=== PATIENT | female | born 1965 | race Caucasian/White ===

== ENCOUNTER 2025-09-18 23:57 | Inpatient (IN) | payer MEDICAID, OTHER ==
[~2025-09-18] VITALS: Ht 175.3 cm; Wt 71.0 kg
[~2025-09-18 23:57] MED LIST: ATOR80TA59 PO; BUSP5TA PO; CARV12.5 PO; DIPHCR TOP; LOSA25TA13 PO; METF-839 PO; NIFE1TAB52 PO; OLAN2.5T53 PO
[2025-09-19] MEDS ORDERED: diphenhydrAMINE 50 MG/ML VIAL As Ordered ONE (00:44)
[2025-09-19] MEDS ORDERED: HALOPERIDOL LACTATE 5 MG/ML VIAL As Ordered ONE (00:44)
[2025-09-19] MEDS: HALOPERIDOL LACTATE 5 MG/ML VIAL IM ONE (00:53)
[2025-09-19] MEDS: diphenhydrAMINE 50 MG/ML VIAL IM ONE (00:53)
[2025-09-19] MEDS: diphenhydrAMINE 50 MG/ML VIAL IV STA (01:40)
[2025-09-19 01:50] LABS: BASO # 0.1 10^3/uL (0.0-0.2); BASO % 0.9 % (0.0-1.0); EOS # 0.0 10^3/uL (0.0-0.5); EOS % 0.4 % (0.0-3.0); LYMPH # 1.1 10^3/uL (1.5-5.0); LYMPH % 18.7 % (24.0-44.0); MONO # 0.2 10^3/uL (0.0-0.8); MONO % 3.2 % (2.0-8.0); NEUTROPHILS # 4.4 10^3/uL (1.5-8.5); NEUTROPHILS % 76.4 % (36.0-66.0); PLATELET COUNT, AUTOMATED 257 10^3/uL (150-450)
[2025-09-19 02:09] LABS: ALT/SGPT 23 U/L (7.0-40); AST/SGOT 20 U/L (<34); CALCIUM LEVEL 10.2 MG/DL (8.5-10.1); CARBON DIOXIDE LEVEL 23 MMOL/L (20-31); CHLORIDE LEVEL 100 MMOL/L (98-107); CREATININE FOR GFR 0.68 MG/DL (0.55-1.30); GLOMERULAR FILTRATION RATE > 90.0 (>51); POTASSIUM SERUM 4.4 MMOL/L (3.5-5.1); SODIUM LEVEL 138 MMOL/L (136-145)
[2025-09-19] MEDS ORDERED: ACETAMINOPHEN 325 MG TAB PO PRN (10:45)
[2025-09-19] MEDS ORDERED: DEXTROSE 50% 50 ML SYRINGE IV PRN (10:45)
[2025-09-19] MEDS ORDERED: GLUCOSE 4 GM CHEW PO PRN (10:45)
[2025-09-19] MEDS ORDERED: GLUCAGON INJ 1 MG VIAL SC PRN (10:45)
[2025-09-19] MEDS ORDERED: DULO1CAP6 PO (10:53)
[2025-09-19] MEDS ORDERED: TRAM50TA2 PO (10:53)
[2025-09-19] MEDS ORDERED: NIFE1TAB51 PO (10:53)
[2025-09-19] MEDS ORDERED: SENN-186 PO (10:53)
[2025-09-19] MEDS ORDERED: GABA-1171 PO (10:53)
[2025-09-19 11:17] LABS: ETHYL ALCOHOL (ETHANOL) 0.004 % (0.000-0.010)
[2025-09-19] MEDS: INSULIN LISPRO (NovoLOG) PER UNIT SC SCH ×2 (12:57→21:00)
[2025-09-19] MEDS ORDERED: ACET-683 PO (12:59)
[2025-09-19] MEDS ORDERED: ASPI81TA26 PO (12:59)
[2025-09-19] MEDS ORDERED: HOME MED LIST COMPLETE! XX SCH (13:00)
[2025-09-19 14:56] LABS: INR 1.07
[2025-09-19] MEDS: busPIRone 5 MG TAB PO SCH (15:15)
[2025-09-19] MEDS: LOSARTAN 25 MG TAB PO SCH (15:16)
[2025-09-19] MEDS: ASPIRIN 81 MG ENTERIC TABLET PO SCH (15:16)
[2025-09-19] MEDS: ATORVASTATIN 20 MG TAB PO SCH (15:16)
[2025-09-19] MEDS: GABAPENTIN 100 MG CAP PO SCH (15:16)
[2025-09-19] MEDS ORDERED: cefTRIAXone SOD 1 GM in DEXTROSE 5% (D5W) ADV/MINI-BAG 50 ML IV SCH (18:55)
[2025-09-19 19:25] LABS: AMPHETAMINES LEVEL URINE NEGATIVE (NEGATIVE); BARBITURATES URINE NEGATIVE (NEGATIVE); COCAINE METABOLITE URINE NEGATIVE (NEGATIVE); METHADONE URINE NEGATIVE (NEGATIVE); OPIATES URINE NEGATIVE (NEGATIVE); PHENCYCLIDINE URINE NEGATIVE (NEGATIVE)
[2025-09-19 19:26] LABS: CANNABINOIDS URINE NEGATIVE (NEGATIVE)
[2025-09-19 19:27] LABS: BENZODIAZEPINES URINE POSITIVE (NEGATIVE)
[2025-09-19 19:51] LABS: KETONE, URINE MANUAL REFLEX NEGATIVE (NEGATIVE); NITRITE, URINE MANUAL RFX NEGATIVE (NEGATIVE); PROTEIN, URINE MANUAL REFLEX 3+ mg/dL (NEGATIVE); SP GRAVITY,URINE MANUAL REFLEX 1.015 (1.002-1.035); UROBILINOGEN, UA MANUAL REFLEX NORMAL (NORMAL)
[2025-09-19 20:00] LABS: SQUAMOUS EPITHELIAL URINE RFX SMALL AMOUNT /hpf (SMALL AMT); TRANSITIONAL EPI, URINE RFX SMALL AMOUNT /hpf; WBC, URINE MAN RFX TNTC /hpf (0-3)
[2025-09-19 20:01] LABS: HYALINE CAST, URINE RFX NONE SEEN /lpf (0-1); MICROSCOPIC EXAM RFX PERFORMED
[2025-09-19] MEDS: SENNA 8.6 MG TAB PO SCH (21:31)
[2025-09-19] MEDS: VANCOMYCIN HCL 1,500 MG, VIAL MATE ADAPTER 1 EACH in NS 500 ML IV ONE (21:32)
[2025-09-20] MEDS: VANCOMYCIN HCL 750 MG, VIAL MATE ADAPTER 1 EACH in NS 250 ML IV SCH ×2 (06:11→16:28)
[2025-09-20] MEDS: ENOXAPARIN 40 MG/0.4 ML SYRINGE (J1650 PER 10MG) SC SCH (07:26)
[2025-09-20] MEDS: NIFEdipine 30 MG XL TAB PO SCH (07:27)
[2025-09-20 07:57] LABS: PLATELET COUNT, AUTOMATED 222 10^3/uL (150-450)
[2025-09-20] MEDS: PIPERACILLIN/TAZOBACTAM SOD 3.375 GM in DEXTROSE 5% (D5W) ADV/MINI-BAG 50 ML IV SCH (08:14)
[2025-09-20 08:25] LABS: C REACTIVE PROTEIN QUANTITATIV < 0.50 MG/DL (<1.0)
[2025-09-20 08:27] LABS: ALT/SGPT 23 U/L (7.0-40); AST/SGOT 26 U/L (<34); CALCIUM LEVEL 9.2 MG/DL (8.5-10.1); CARBON DIOXIDE LEVEL 28 MMOL/L (20-31); CHLORIDE LEVEL 103 MMOL/L (98-107); CREATININE FOR GFR 0.85 MG/DL (0.55-1.30); GLOMERULAR FILTRATION RATE 79.4 (>51); POTASSIUM SERUM 3.7 MMOL/L (3.5-5.1); SODIUM LEVEL 141 MMOL/L (136-145)
[2025-09-20 15:49] VITALS: BP 80/60; TEMP 97.5; O2SAT 98
[2025-09-20] MEDS: OMEPRAZOLE 20MG CAP PO SCH (16:23)
[2025-09-20] MEDS: traMADol 50 MG TAB PO PRN (16:24)
[2025-09-20 17:12] VITALS: BP 94/58
[2025-09-20 17:23] LABS: CK-MB VALUE MASS 1.9 NG/ML (<3.6)
[2025-09-20 17:25] LABS: CPK CREATINE PHOSPHOKINASE 142.0 U/L (34-145); MB/CK RELATIVE INDEX 1.33 (< OR =4)
[2025-09-20] MEDS: NS (Normal Saline) 0.9% 1,000 ML IV ONE (18:45)
[2025-09-20 19:29] VITALS: BP 113/59; TEMP 98.1; O2SAT 96
[2025-09-20 19:43] LABS: HIV 1&2 SCREEN NEGATIVE (NEGATIVE)
[2025-09-20 19:51] LABS: HEPATITIS C VIRUS ABY INDEX < 0.02 INDEX (<0.8)
[2025-09-21 04:41] VITALS: BP 102/57; TEMP 98.1; O2SAT 95
[2025-09-21 07:55] LABS: PLATELET COUNT, AUTOMATED 206 10^3/uL (150-450)
[2025-09-21 08:21] LABS: ALT/SGPT 18 U/L (7.0-40); AST/SGOT 21 U/L (<34); CALCIUM LEVEL 8.3 MG/DL (8.5-10.1); CARBON DIOXIDE LEVEL 25 MMOL/L (20-31); CHLORIDE LEVEL 109 MMOL/L (98-107); CREATININE FOR GFR 0.75 MG/DL (0.55-1.30); GLOMERULAR FILTRATION RATE > 90.0 (>51); POTASSIUM SERUM 4.0 MMOL/L (3.5-5.1); SODIUM LEVEL 143 MMOL/L (136-145)
[2025-09-21 09:05] VITALS: BP 149/77
[2025-09-21 12:00] VITALS: BP 144/70; TEMP 98.3; O2SAT 98
[2025-09-21] MEDS ORDERED: OMEP-173 PO (17:01)
[2025-09-21] MEDS ORDERED: ONDA-282 PO (17:01)
[2025-09-23 09:02] LABS: HEPATITIS B CORE ANTIBODY IGG NON-REACTIVE (NON-REACTIVE); HEPATITIS B SURF AB QUANT < 5 mIU/mL (> OR = 10)
== END 2025-09-21 18:04 | disposition home or self-care (01) | DRG 861 ==
LOC: M ED 23:57 → EEVIPCON 09-19 21:36 → M ED INP 09-19 21:36 → M MSPAV 09-20 15:43
PROVIDERS: ADMIT Internal Medicine; ATTEND Internal Medicine
PROC: B246ZZZ Ultrasonography of Right and Left Heart (ICD-10-PCS; principal; 2025-09-21)
DX: R53.1 Weakness (principal); I50.32 Chronic diastolic (congestive) heart failure; E11.42 Type 2 diabetes mellitus with diabetic polyneuropathy; E11.51 Type 2 diabetes mellitus with diabetic peripheral angiopathy without gangrene; E11.43 Type 2 diabetes mellitus with diabetic autonomic (poly)neuropathy; K31.84 Gastroparesis; G54.6 Phantom limb syndrome with pain; I69.351 Hemiplegia and hemiparesis following cerebral infarction affecting right dominant side; R26.89 Other abnormalities of gait and mobility; F32.9 Major depressive disorder, single episode, unspecified; F41.9 Anxiety disorder, unspecified; K21.00 Gastro-esophageal reflux disease with esophagitis, without bleeding; K21.9 Gastro-esophageal reflux disease without esophagitis; R11.2 Nausea with vomiting, unspecified; B96.20 Unspecified Escherichia coli [E. coli] as the cause of diseases classified elsewhere; Z89.512 Acquired absence of left leg below knee; Z79.84 Long term (current) use of oral hypoglycemic drugs; Z79.899 Other long term (current) drug therapy